=== PATIENT | female | born 1930 | race Caucasian/White ===

== ENCOUNTER 2016-05-25 09:57 | Outpatient (CLI) | payer MEDICARE, OTHER | END 2016-05-25 09:58 | disposition home or self-care (01) | DX: E87.6 Hypokalemia (principal); I10 Essential (primary) hypertension; R00.2 Palpitations; E78.5 Hyperlipidemia, unspecified ==

== ENCOUNTER 2017-05-18 08:00 | Outpatient (CLI) | payer MEDICARE, OTHER ==
[2017-05-18 13:01] LABS: BASOPHILS % (AUTO) 0.5 %; EOSINOPHILS % (AUTO) 0.8 %; HGB - HEMOGLOBIN 13.3 g/dL (12.0-16.0); LYMPHOCYTES # (AUTO) 1.5 10^3/uL (1.5-3.5); MEAN CORPUSCULAR HEMOGLOBIN 32.1 pg (27.0-31.0); MEAN CORPUSCULAR VOLUME 94.5 fL (81.0-99.0); MONOCYTES # (AUTO) 0.3 10^3/uL (0.0-1.0); NEUTROPHILS # (AUTO) 1.9 10^3/uL (1.5-6.6); NEUTROPHILS % (AUTO) 49.7 %; PLT - PLATELET COUNT 174 10^3/uL (130-450); RED BLOOD COUNT 4.14 10^6/uL (4.20-5.40); RED CELL DISTRIBUTION WIDTH 13.4 % (12.0-15.0); WHITE BLOOD COUNT 3.7 x10^3/uL (4.8-10.8)
[2017-05-18 13:12] LABS: ALBUMIN 4.2 g/dL (3.2-5.5); ALBUMIN/GLOBULIN RATIO 1.5 (1.0-2.2); ALKALINE PHOSPHATASE 54 IU/L (42-121); ALT ALANINE AMINOTRANSFERASE 16 IU/L (10-60); AST ASPARTATE AMINOTRANSFERASE 25 IU/L (10-42); BILIRUBIN,TOTAL 0.5 mg/dL (0.2-1.0); BUN - BLOOD UREA NITROGEN 20 mg/dL (6-20); CALCIUM 8.9 mg/dL (8.5-10.3); CARBON DIOXIDE - CO2 30 mmol/L (21-32); CHLORIDE 101 mmol/L (101-111); CHOLESTEROL 245 mg/dL; CREATININE 0.6 mg/dL (0.4-1.0); GFR - MDRD 95 (>89); GLUCOSE 98 mg/dL (70-100); HDL CHOLESTEROL 61 mg/dL; LDL CHOLESTEROL,CALCULATED 160 mg/dL; LDL/HDL RATIO 2.6 (<4.4); SODIUM 139 mmol/L (135-145); VLDL CHOLESTEROL 24 mg/dL
== END 2017-05-18 08:01 | disposition home or self-care (01) ==
LOC: LAB.WCP 08:00
PROVIDERS: ATTEND Family Medicine
DX: E87.6 Hypokalemia (principal); I10 Essential (primary) hypertension
CPT/HCPCS: 36415; 80053; 80061; 83721; 84443; 85025

== ENCOUNTER 2017-05-29 12:35 | Outpatient (CLI) | payer MEDICARE, OTHER ==
--- NOTE | 2017-05-30 10:51 | Mammography Report ---
DIGITAL SCREENING MAMMOGRAPHY: 05/29/2017 HISTORY: Prior right benign breast biopsy. COMPARISON: 05/06/2009. TECHNIQUE: Bilateral digital CC and MLO projections. FINDINGS: There are scattered fibroglandular densities. Stable postsurgical changes 12 o'clock position right breast. A few scattered benign appearing calcifications are present. There is no dominant mass, new architectural distortion, clustered suspicious microcalcifications, skin thickening, or interval change. IMPRESSION: NEGATIVE BI-RADS CATEGORY 1. SUGGEST RETURN TO ROUTINE SCREENING IN 12 MONTHS. STANDARD QUALIFYING STATEMENTS: 1. This examination was reviewed with the aid of Computer-Aided Detection (CAD) . 2. A negative or benign imaging report should not delay biopsy if clinically suspicious findings are present. Consider surgical consultation if warranted. More than 5 % of cancers are not identified by imaging. 3. Dense breasts may obscure an underlying neoplasm. TD: 05/30/2017 10:50 MTDD
== END 2017-05-29 12:36 | disposition home or self-care (01) ==
LOC: DI 12:35
PROVIDERS: ATTEND Family Medicine
DX: Z12.31 Encounter for screening mammogram for malignant neoplasm of breast (principal)
CPT/HCPCS: 77067

== ENCOUNTER 2017-09-27 08:00 | Outpatient (CLI) | payer MEDICARE, OTHER ==
[2017-09-27 12:30] LABS: BASOPHILS % (AUTO) 0.4 %; EOSINOPHILS % (AUTO) 1.1 %; HGB - HEMOGLOBIN 13.4 g/dL (12.0-16.0); LYMPHOCYTES # (AUTO) 1.3 10^3/uL (1.5-3.5); LYMPHOCYTES % (AUTO) 31.5 %; MEAN CORPUSCULAR HEMOGLOBIN 32.4 pg (27.0-31.0); MEAN CORPUSCULAR HGB CONC 34.1 g/dL (32.0-36.0); MEAN CORPUSCULAR VOLUME 94.9 fL (81.0-99.0); MEAN PLATELET VOLUME 9.8 fL (7.9-10.8); MONOCYTES # (AUTO) 0.3 10^3/uL (0.0-1.0); MONOCYTES % (AUTO) 7.8 %; NEUTROPHILS # (AUTO) 2.5 10^3/uL (1.5-6.6); NEUTROPHILS % (AUTO) 59.2 %; PLT - PLATELET COUNT 175 10^3/uL (130-450); RED BLOOD COUNT 4.15 10^6/uL (4.20-5.40); RED CELL DISTRIBUTION WIDTH 13.3 % (12.0-15.0); WHITE BLOOD COUNT 4.3 x10^3/uL (4.8-10.8)
[2017-09-27 13:21] LABS: ALBUMIN/GLOBULIN RATIO 1.3 (1.0-2.2); BILIRUBIN,TOTAL 0.9 mg/dL (0.2-1.0); CALCIUM 9.1 mg/dL (8.5-10.3); CREATININE 0.7 mg/dL (0.4-1.0); TOTAL PROTEIN 7.2 g/dL (6.7-8.2)
== END 2017-09-27 08:01 ==
LOC: LAB.WCP 08:00
PROVIDERS: ATTEND Family Medicine
DX: R00.2 Palpitations (principal)
CPT/HCPCS: 36415; 80053; 84443; 85025

== ENCOUNTER 2017-10-09 09:19 | Outpatient (CLI) | payer MEDICARE, OTHER ==
[2017-10-09 12:47] LABS: BASOPHILS % (AUTO) 0.6 %; HGB - HEMOGLOBIN 13.3 g/dL (12.0-16.0); LYMPHOCYTES # (AUTO) 1.4 10^3/uL (1.5-3.5); LYMPHOCYTES % (AUTO) 37.3 %; MEAN CORPUSCULAR HEMOGLOBIN 32.2 pg (27.0-31.0); MEAN CORPUSCULAR HGB CONC 34.2 g/dL (32.0-36.0); MEAN CORPUSCULAR VOLUME 94.1 fL (81.0-99.0); MEAN PLATELET VOLUME 10.4 fL (7.9-10.8); MONOCYTES # (AUTO) 0.3 10^3/uL (0.0-1.0); MONOCYTES % (AUTO) 8.1 %; PLT - PLATELET COUNT 164 10^3/uL (130-450); RED BLOOD COUNT 4.12 10^6/uL (4.20-5.40); RED CELL DISTRIBUTION WIDTH 12.9 % (12.0-15.0); WHITE BLOOD COUNT 3.7 x10^3/uL (4.8-10.8)
[2017-10-09 13:29] LABS: ALBUMIN 3.9 g/dL (3.2-5.5); ALBUMIN/GLOBULIN RATIO 1.2 (1.0-2.2); BILIRUBIN,TOTAL 0.8 mg/dL (0.2-1.0); CALCIUM 9.4 mg/dL (8.5-10.3); CREATININE 0.6 mg/dL (0.4-1.0); TOTAL PROTEIN 7.2 g/dL (6.7-8.2)
== END 2017-10-09 09:20 ==
LOC: LAB.WCP 09:19
PROVIDERS: ATTEND Internal Medicine Hematology & Oncology
DX: Z08 Encounter for follow-up examination after completed treatment for malignant neoplasm (principal)
CPT/HCPCS: 36415; 80053; 82378; 85025

== ENCOUNTER 2018-09-12 14:54 | Outpatient (CLI) | payer MEDICARE, OTHER ==
[2018-09-12 19:10] LABS: BASOPHILS % (AUTO) 0.4 %; EOSINOPHILS # (AUTO) 0.1 10^3/uL (0.0-0.7); HGB - HEMOGLOBIN 12.9 g/dL (12.0-16.0); LYMPHOCYTES # (AUTO) 1.6 10^3/uL (1.5-3.5); LYMPHOCYTES % (AUTO) 33.6 %; MEAN CORPUSCULAR HEMOGLOBIN 31.7 pg (27.0-31.0); MEAN CORPUSCULAR HGB CONC 32.3 g/dL (32.0-36.0); MEAN PLATELET VOLUME 12.2 fL (7.9-10.8); MONOCYTES # (AUTO) 0.4 10^3/uL (0.0-1.0); MONOCYTES % (AUTO) 8.9 %; NEUTROPHILS # (AUTO) 2.7 10^3/uL (1.5-6.6); NEUTROPHILS % (AUTO) 55.9 %; PLT - PLATELET COUNT 192 10^3/uL (130-450); RED BLOOD COUNT 4.07 10^6/uL (4.20-5.40); RED CELL DISTRIBUTION WIDTH 12.5 % (12.0-15.0); WHITE BLOOD COUNT 4.9 x10^3/uL (4.8-10.8)
[2018-09-12 19:21] LABS: ALBUMIN 3.8 g/dL (3.2-5.5); ALBUMIN/GLOBULIN RATIO 1.2 (1.0-2.2); ALKALINE PHOSPHATASE 71 IU/L (42-121); ALT ALANINE AMINOTRANSFERASE 18 IU/L (10-60); AST ASPARTATE AMINOTRANSFERASE 21 IU/L (10-42); BILIRUBIN,TOTAL < 0.2 mg/dL (0.2-1.0); BUN - BLOOD UREA NITROGEN 19 mg/dL (6-20); CALCIUM 9.2 mg/dL (8.5-10.3); CARBON DIOXIDE - CO2 30 mmol/L (21-32); CHLORIDE 101 mmol/L (101-111); CREATININE 0.7 mg/dL (0.4-1.0); GFR - MDRD 79 (>89); GLUCOSE 105 mg/dL (70-100); MAGNESIUM 2.3 mg/dL (1.7-2.8); SODIUM 141 mmol/L (135-145); TOTAL PROTEIN 7.1 g/dL (6.7-8.2)
== END 2018-09-12 23:59 | disposition home or self-care (01) ==
LOC: LAB.WCP 14:54
PROVIDERS: ATTEND Family Medicine
DX: I10 Essential (primary) hypertension (principal); R00.2 Palpitations
CPT/HCPCS: 36415; 80053; 83735; 84443; 85025

== ENCOUNTER 2018-09-25 07:48 | Outpatient (CLI) | payer MEDICARE, OTHER | END 2018-09-25 07:49 | disposition home or self-care (01) | LOC: DI 07:48 | PROVIDERS: ATTEND Family Medicine | DX: R42 Dizziness and giddiness (principal); R00.2 Palpitations; I27.20 Pulmonary hypertension, unspecified; I34.0 Nonrheumatic mitral (valve) insufficiency | CPT/HCPCS: 93306 ==

== ENCOUNTER 2018-10-04 13:59 | Outpatient (CLI) | payer MEDICARE, OTHER ==
--- NOTE | 2018-10-05 14:02 | XRAY Report ---
Reason: HIP PAIN Procedure Date: 10/04/2018 Accession Number: [id number] / [id number] Procedure: WCP - Hip BILAT CPT Code: FULL RESULT: EXAM: BILATERAL HIP RADIOGRAPHY EXAM DATE: 10/04/2018 01:59 PM. CLINICAL HISTORY: HIP PAIN. By all hip and groin pain for 2 weeks. COMPARISON: None. TECHNIQUE: 2 views each. FINDINGS: Bones: Normal. No fractures or bone lesion. Right Hip: Mild right hip joint space narrowing. Left Hip: Mild left hip joint space narrowing. Soft Tissues: Normal. No soft tissue swelling. IMPRESSION: 1. Mild bilateral hip degenerative changes. 2. No evidence of fracture or dislocation. RADIA
== END 2018-10-04 23:59 | disposition home or self-care (01) ==
LOC: DI.WCP 13:59
PROVIDERS: ATTEND Family Medicine
DX: M16.0 Bilateral primary osteoarthritis of hip (principal)
CPT/HCPCS: 73521

== ENCOUNTER 2018-10-15 08:00 | Outpatient (CLI) | payer MEDICARE, OTHER ==
[2018-10-15 12:49] LABS: CALCIUM 9.5 mg/dL (8.5-10.3); CREATININE 0.8 mg/dL (0.4-1.0)
== END 2018-10-15 23:59 | disposition home or self-care (01) ==
LOC: LAB.WCP 08:00
PROVIDERS: ATTEND Family Medicine
DX: E87.6 Hypokalemia (principal)
CPT/HCPCS: 36415; 80048

== ENCOUNTER 2018-12-14 15:03 | Emergency (ER) | payer MEDICARE, OTHER ==
[2018-12-14] MEDS ORDERED: DEXAMETHASONE 10 MG/ML VIAL PO STA (15:28)
[2018-12-14] MEDS ORDERED: CHERRY SYRUP 10 ML UDC PO ONE (15:28)
[2018-12-14 15:51] VITALS: BP 157/74
--- NOTE | 2018-12-14 15:51 | ED Physician Documentation ---
History of Present Illness - Stated complaint Stated Complaint: RT WRIST INCISION OPENING - Chief complaint Chief Complaint: Laceration - History obtained from History obtained from: Patient, Family - History of Present Illness Timing: Today - Additonal information Additional information: 88-year-old female begin to have some symptoms of carpal tunnel in August of this year and she has had a carpal tunnel release done on the right wrist 16 days ago and she is coming to the emergency department today for a superficial dehiscence of her wound. She had the sutures removed yesterday today she notices the wound is open at the top and there is no bleeding and the patient has improved functionality of the hand. She had previously had injection into the carpal tunnel with only temporary relief and she indicates that after surgery she had immediate relief and she is anxious to get the surgery done on the left wrist. She has an orthopedic surgeon she has seen on at [facility]. 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: Other - Present Medications Home Medications: Ambulatory Orders Medication Instructions Recorded Confirmed Hydrochlorothiazide 25 mg PO DAILY 07/01/14 07/01/14 Losartan [Cozaar] 1 units ORAL DAILY 07/01/14 07/01/14 Potassium Gluconate [Potassium] 99 mg PO DAILY 07/01/14 07/01/14 - Allergies Allergies/Adverse Reactions: Allergies Allergy/AdvReac Type Severity Reaction Status Date / Time No Known Drug Allergies Allergy Verified 12/14/18 15:10 PD ED PE NORMAL - Vitals Vital signs reviewed: Yes (hypertensive) - General General: No acute distress, Well developed/nourished - HEENT HEENT: Atraumatic, PERRL - Respiratory Respiratory: No respiratory distress - Derm Derm: Normal color, Warm and dry - Extremities Extremities: Other (With palmar surface of the proximal hand there is a 3 cm surgical incision and this appears to have healed from the inside and the superficial layer of the skin is . There is no bleeding there is no significant inflammation to the area. The wound does not dehisce further with traction on the wound. Distal neurovascular is intact with the exception of some numbness to the right thumb.) - Neuro Neuro: Alert and oriented X 3, operations executive 2-12 intact, No motor deficit, No sensory deficit, Normal speech Eye Opening: Spontaneous Motor: Obeys Commands Verbal: Oriented GCS Score: 15 - Psych Psych: Normal mood, Normal affect Results - Vitals Vitals: Vital Signs - 24 hr 12/14/18 15:10 Temperature 36.6 C Heart Rate 65 Respiratory 16 Rate Blood Pressure 154/79 H O2 Saturation 94 Oxygen O2 Source Room air PD MEDICAL DECISION MAKING - ED course Complexity details: reviewed results, re-evaluated patient, considered differential, d/w patient, d/w family ED course: 88-year-old female with a carpal tunnel release done 16 days ago has superficial dehiscence of the wound and it appears to be healing well from the inside. She is reassured and she does have some puffiness to the hand into the left wrist and we have administered a dose of dexamethasone for symptomatic treatment. Departure - Departure Disposition: 01 Home, Self Care Clinical Impression: Superficial dehiscence of operation wound Qualifiers: Encounter type: initial encounter Qualified Code(s): T81.31XA - Disruption of external operation (surgical) wound, not elsewhere classified, initial encounter Condition: Stable Instructions: ED Wound Check Post Op No Infec Follow-Up: Alexandra Bonilla DO [Primary Care Provider] -
== END 2018-12-14 16:05 | disposition home or self-care (01) ==
LOC: ED 15:03
DX: T81.31XA Disruption of external operation (surgical) wound, not elsewhere classified, initial encounter (principal); Y83.8 Other surgical procedures as the cause of abnormal reaction of the patient, or of later complication, without mention of misadventure at the time of the procedure; I10 Essential (primary) hypertension
CPT/HCPCS: 99282; A9270

== ENCOUNTER 2019-01-03 10:30 | Emergency (ER) | payer MEDICARE, OTHER ==
[2019-01-03 10:54] LABS: BASOPHILS % (AUTO) 0.4 %; EOSINOPHILS % (AUTO) 0.6 %; HGB - HEMOGLOBIN 13.4 g/dL (12.0-16.0); LYMPHOCYTES # (AUTO) 1.4 10^3/uL (1.5-3.5); LYMPHOCYTES % (AUTO) 28.5 %; MEAN CORPUSCULAR HEMOGLOBIN 31.6 pg (27.0-31.0); MEAN CORPUSCULAR HGB CONC 33.8 g/dL (32.0-36.0); MEAN CORPUSCULAR VOLUME 93.6 fL (81.0-99.0); MONOCYTES # (AUTO) 0.4 10^3/uL (0.0-1.0); MONOCYTES % (AUTO) 7.3 %; PLT - PLATELET COUNT 200 10^3/uL (130-450); RED BLOOD COUNT 4.24 10^6/uL (4.20-5.40); RED CELL DISTRIBUTION WIDTH 12.2 % (12.0-15.0); WHITE BLOOD COUNT 4.8 x10^3/uL (4.8-10.8)
[2019-01-03 11:07] LABS: ALBUMIN 4.7 g/dL (3.2-5.5); ALBUMIN/GLOBULIN RATIO 1.4 (1.0-2.2); BILIRUBIN,TOTAL 0.7 mg/dL (0.2-1.0); CALCIUM 9.8 mg/dL (8.5-10.3); CREATININE 0.7 mg/dL (0.4-1.0)
--- NOTE | 2019-01-03 11:11 | ED Physician Documentation ---
History of Present Illness - Stated complaint Stated Complaint: HEART PALPITATIONS - Chief complaint Chief Complaint: Cardiac - History obtained from History obtained from: Patient, Family - History of Present Illness Timing: Chronic Pain level now: 0 - Additonal information Additional information: This is an 88-year-old woman who has had a long-standing history of palpitations over many years and now they seem to be happening more frequently and more intensely. The usually last for 2 to 3 minutes but this morning it seemed to go on for 10 to 15 minutes. She describes them as more as a "uneven beat". She gets that short of breath when they happen and feels little bit dizzy but she has not passed out. She gets a wave of fatigue and cold associated with it as well over the past 30 days however on November 28 she had a right carpal tunnel repair and then a left one done just this past Monday 2 days ago. She has had these palpitations for many years nothing is ever shown up and they worked them up she is even 1 monitor. Denies history of heart disease or A. fib. Has no history of thyroid disorder or diabetes. She has been experiencing some nausea and does not have much of an appetite but she has not been vomiting. She normally takes losartan hydrochlorothiazide and potassium but did not take them today. She admits to 3 to 4 cups of coffee a day. Denies use of any other stimulants. She has not recently been ill. Denies headache or dysuria. Denies history of DVT. She is complaining of some numbness along the lateral right lower leg that she believes is from being so sedentary since she had a carpal tunnel surgeries. She is normally very active she lives with her and daughter. Her is requires some care and with these of back to back surgery she really has not been able to do very much. Review of Systems Constitutional: denies: Fever Eyes: denies: Loss of vision Nose: denies: Rhinorrhea / runny nose, Congestion Throat: denies: Sore throat Cardiac: reports: Palpitations. denies: Chest pain / pressure, Pedal edema Respiratory: reports: Dyspnea. denies: Cough GI: denies: Nausea, Vomiting : denies: Dysuria, Frequency Musculoskeletal: reports: Extremity swelling (The left hand is swollen after the carpal tunnel surgery) Neurologic: reports: Generalized weakness, Numbness (Along the lateral right lower leg just since she is been sedentary.). 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: Other - Present Medications Home Medications: Ambulatory Orders Medication Instructions Recorded Confirmed Hydrochlorothiazide 25 mg PO DAILY 07/01/14 07/01/14 Losartan [Cozaar] 1 units ORAL DAILY 07/01/14 07/01/14 Potassium Gluconate [Potassium] 99 mg PO DAILY 07/01/14 07/01/14 - Allergies Allergies/Adverse Reactions: Allergies Allergy/AdvReac Type Severity Reaction Status Date / Time No Known Drug Allergies Allergy Verified 12/14/18 15:10 - Social History Does the pt smoke?: No Smoking Status: Never smoker Does the pt drink ETOH?: No Does the pt have substance abuse?: No - Immunizations Immunizations are current?: Yes PD ED PE NORMAL - Vitals Vital signs reviewed: Yes - General General: Alert and oriented X 3, No acute distress, Well developed/nourished - HEENT HEENT: Atraumatic, PERRL, EOMI, Moist mucous membranes, Pharynx benign - Neck Neck: Supple, no meningeal sign, No adenopathy, Thyroid normal, No JVD, No bruit - Cardiac Cardiac: RRR, No murmur, No rub, Strong equal pulses - Respiratory Respiratory: No respiratory distress, Clear bilaterally - Abdomen Abdomen: Normal bowel sounds, Soft, Non tender - Derm Derm: Normal color, Warm and dry, No rash - Extremities Extremities: No deformity, Other (The left wrist is wrapped in an Onesimo wrap. She has edema to the hand and fingers. There is a well-healed carpal tunnel scar in her right palm. Her knuckles are enlarged on the right hand but no edema.) - Neuro Neuro: Alert and oriented X 3, capacitor tester 2-12 intact, No motor deficit, No sensory deficit, Normal speech - Psych Psych: Normal mood, Normal affect Results - Vitals Vitals: Vital Signs - 24 hr 01/03/19 01/03/19 01/03/19 10:31 11:12 12:44 Temperature 36.6 C Heart Rate 76 68 68 Respiratory 18 18 18 Rate Blood Pressure 216/81 H 197/97 H 152/60 H O2 Saturation 96 99 98 01/03/19 14:20 Temperature Heart Rate 78 Respiratory 18 Rate Blood Pressure 151/72 H O2 Saturation 95 Oxygen O2 Source Room air - EKG (time done) 1041 Rate: Rate (enter#) (66) Rhythm: NSR Intervals: No: Wide QRS Ischemia: ST depression (V5 and V6) Compare to prior EKG: Old EKG unavailable - Labs Labs: Laboratory Tests 01/03/19 01/03/19 01/03/19 10:48 10:48 10:48 WBC 4.8 RBC 4.24 Hgb 13.4 Hct 39.7 MCV 93.6 MCH 31.6 H MCHC 33.8 RDW 12.2 Plt Count 200 MPV 11.0 H Neut # (Auto) 3.0 Lymph # (Auto) 1.4 L Rabun # (Auto) 0.4 Eos # (Auto) 0.0 Baso # (Auto) 0.0 Absolute Nucleated RBC 0.00 Nucleated RBC % 0.0 Sodium 141 Potassium 3.4 L Chloride 101 Carbon Dioxide 29 Anion Gap 11.0 BUN 17 Creatinine 0.7 Estimated GFR (MDRD) 79 L Glucose 103 H Calcium 9.8 Total Bilirubin 0.7 AST 18 ALT 11 Alkaline Phosphatase 70 Troponin I High Sens 4.8 Total Protein 8.0 Albumin 4.7 Globulin 3.3 Albumin/Globulin Ratio 1.4 Lipase 29 - Rads (name of study) CXR Radiology: See rad report (NEg acute) PD MEDICAL DECISION MAKING - ED course Complexity details: reviewed results, re-evaluated patient, d/w patient, d/w family ED course: Patient was monitored here in the emergency department the daughter made note of a time that she saw something on the heart monitor and when we reviewed there were 2 PACs that were evident during that timeframe. Otherwise no arrhythmia was noted. Her potassium was very minimally low at 3.4 so she was given 20 mg once of potassium orally. Hemoglobin is normal. Troponin was negative. Chest x-ray was clear and her EKG does not show acute changes. She has an appointment scheduled with her primary care provider tomorrow. Of encouraged her to keep that appointment to discuss whether or not she should wear another Holter monitor. We discussed Turmeric as a natural anti-inflammatory. Departure - Departure Disposition: Home, Self Care Clinical Impression: Palpitations, Hypokalemia Condition: Good Instructions: ED Palpitations Follow-Up: Alexandra Bonilla DO [Primary Care Provider] - Comments: Home and rest. Do not take any additional potassium today. Keep the dandy ointment scheduled tomorrow and discuss whether or not wearing another Holter monitor would be beneficial. Discharge Date/Time: 01/03/19 14:22
--- NOTE | 2019-01-03 12:41 | XRAY Report ---
Reason: chest pain Procedure Date: 01/03/2019 Accession Number: [id number] / [id number] Procedure: XR - Chest 1 View X-Ray CPT Code: 76988 Final Report FULL RESULT: EXAM: CHEST RADIOGRAPHY EXAM DATE: 01/03/2019 11:47 AM. CLINICAL HISTORY: Chest pain. COMPARISON: CHEST 2 VIEW PA/LAT 07/03/2014 6:27 PM. TECHNIQUE: 1 view. FINDINGS: Lungs/Pleura: No focal opacities evident. No pleural effusion. No pneumothorax. Mediastinum: Atherosclerotic aortic arch calcification. Other: None. IMPRESSION: No consolidation evident. RADIA
[2019-01-03] MEDS ORDERED: POTASSIUM CHLORIDE 20 MEQ TABLET PO ONE (13:08)
[2019-01-03 14:21] VITALS: BP 151/72
== END 2019-01-03 14:22 | disposition home or self-care (01) ==
LOC: ED 10:30
DX: R00.2 Palpitations (principal); E87.6 Hypokalemia; I10 Essential (primary) hypertension
CPT/HCPCS: 36415; 71045; 80053; 83690; 84484; 85025; 93005; 99281; 99284; A9270

== ENCOUNTER 2019-03-14 08:00 | Outpatient (CLI) | payer MEDICARE, OTHER ==
[2019-03-14 12:43] LABS: ALBUMIN 4.2 g/dL (3.2-5.5); ALBUMIN/GLOBULIN RATIO 1.2 (1.0-2.2); BILIRUBIN,TOTAL 0.8 mg/dL (0.2-1.0); CALCIUM 9.2 mg/dL (8.5-10.3); CREATININE 0.8 mg/dL (0.4-1.0); MAGNESIUM 2.4 mg/dL (1.7-2.8); TOTAL PROTEIN 7.6 g/dL (6.7-8.2)
[2019-03-14 12:54] LABS: BASOPHILS % (AUTO) 0.3 %; EOSINOPHILS # (AUTO) 0.1 10^3/uL (0.0-0.7); EOSINOPHILS % (AUTO) 0.9 %; HGB - HEMOGLOBIN 13.2 g/dL (12.0-16.0); LYMPHOCYTES # (AUTO) 1.4 10^3/uL (1.5-3.5); LYMPHOCYTES % (AUTO) 24.6 %; MEAN CORPUSCULAR HEMOGLOBIN 30.6 pg (27.0-31.0); MEAN CORPUSCULAR HGB CONC 32.4 g/dL (32.0-36.0); MEAN CORPUSCULAR VOLUME 94.4 fL (81.0-99.0); MEAN PLATELET VOLUME 11.9 fL (7.9-10.8); MONOCYTES # (AUTO) 0.4 10^3/uL (0.0-1.0); MONOCYTES % (AUTO) 7.6 %; NEUTROPHILS # (AUTO) 3.8 10^3/uL (1.5-6.6); NEUTROPHILS % (AUTO) 66.4 %; PLT - PLATELET COUNT 187 10^3/uL (130-450); RED BLOOD COUNT 4.32 10^6/uL (4.20-5.40); RED CELL DISTRIBUTION WIDTH 12.7 % (12.0-15.0); WHITE BLOOD COUNT 5.8 x10^3/uL (4.8-10.8)
== END 2019-03-14 23:59 | disposition home or self-care (01) ==
LOC: LAB.WCP 08:00
PROVIDERS: ATTEND Family Medicine
DX: R00.2 Palpitations (principal)
CPT/HCPCS: 36415; 80053; 83735; 84443; 85025

== ENCOUNTER 2020-04-09 13:20 | Emergency (ER) | payer MEDICARE, OTHER ==
[2020-04-09 14:29] LABS: BASOPHILS % (AUTO) 0.5 %; EOSINOPHILS % (AUTO) 0.7 %; HGB - HEMOGLOBIN 13.5 g/dL (12.0-16.0); LYMPHOCYTES # (AUTO) 1.2 10^3/uL (1.5-3.5); LYMPHOCYTES % (AUTO) 28.2 %; MEAN CORPUSCULAR HEMOGLOBIN 32.3 pg (27.0-31.0); MEAN CORPUSCULAR HGB CONC 33.7 g/dL (32.0-36.0); MEAN CORPUSCULAR VOLUME 95.9 fL (81.0-99.0); MEAN PLATELET VOLUME 11.7 fL (7.9-10.8); MONOCYTES # (AUTO) 0.4 10^3/uL (0.0-1.0); MONOCYTES % (AUTO) 10.3 %; NEUTROPHILS # (AUTO) 2.5 10^3/uL (1.5-6.6); NEUTROPHILS % (AUTO) 60.1 %; PLT - PLATELET COUNT 163 10^3/uL (130-450); RED BLOOD COUNT 4.18 10^6/uL (4.20-5.40); RED CELL DISTRIBUTION WIDTH 12.4 % (12.0-15.0); WHITE BLOOD COUNT 4.1 x10^3/uL (4.8-10.8)
--- NOTE | 2020-04-09 14:31 | XRAY Report ---
PROCEDURE: Chest 1 View X-Ray INDICATIONS: Chest Pain TECHNIQUE: One view of the chest was acquired. COMPARISON: 01/04/2020 chest x-ray FINDINGS: Surgical changes and devices: None. Lungs and pleura: No pleural effusions or pneumothorax. Lungs are clear. Mediastinum: Mediastinal contours appear normal. Heart size is normal. Bones and chest wall: No suspicious bony lesions. Overlying soft tissues appear unremarkable. IMPRESSION: No acute process. Reviewed by: Wendy Freeman MD on 04/09/2020 2:29 PM PST Approved by: Wendy Freeman MD on 04/09/2020 2:29 PM [facility] Station ID: [id number]
[2020-04-09 14:46] LABS: ALBUMIN 4.2 g/dL (3.2-5.5); ALBUMIN/GLOBULIN RATIO 1.3 (1.0-2.2); BILIRUBIN,TOTAL 0.6 mg/dL (0.2-1.0); CALCIUM 9.4 mg/dL (8.5-10.3); CREATININE 0.7 mg/dL (0.4-1.0); TOTAL PROTEIN 7.4 g/dL (6.7-8.2)
--- NOTE | 2020-04-09 16:10 | ED Physician Documentation ---
History of Present Illness - Stated complaint Stated Complaint: DIZZINESS/TINGLING - Chief complaint Chief Complaint: General - History obtained from History obtained from: Patient - Additonal information Additional information: 89-year-old woman with history of high blood pressure presents with palpitations for the past year worsening over the past 2 to 3 days associated with lightheadedness, tired feeling and tingling sensation. Patient states that she has been getting dizzy while doing yard work and has been taking it easy over the past year but this morning was watching political debate on television and experienced a squeezing in her heart that prompted her to call her daughter. Her daughter then urged her to come to the emergency room. The squeezing sensation in the heart was mild, sudden onset, nonradiating, resolved on its own after a few minutes, a/w dizziness. Denies fevers chills, nausea, back pain, shortness of breath, cough or leg swelling. 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: Other - Present Medications Home Medications: Ambulatory Orders Medication Instructions Recorded Confirmed Hydrochlorothiazide 25 mg PO DAILY 07/01/14 07/01/14 Losartan [Cozaar] 1 units ORAL DAILY 07/01/14 07/01/14 Potassium Gluconate [Potassium] 99 mg PO DAILY 07/01/14 07/01/14 - Allergies Allergies/Adverse Reactions: Allergies Allergy/AdvReac Type Severity Reaction Status Date / Time nuts Allergy Unknown Uncoded 01/04/19 07:43 - Social History Does the pt smoke?: No Smoking Status: Never smoker Does the pt drink ETOH?: No Does the pt have substance abuse?: No - Immunizations Immunizations are current?: Yes PD ED PE NORMAL - Vitals Vital signs reviewed: Yes - General General: Alert and oriented X 3, No acute distress, Well developed/nourished - HEENT HEENT: Atraumatic - Neck Neck: Supple, no meningeal sign - Cardiac Cardiac: RRR - Respiratory Respiratory: No respiratory distress, Clear bilaterally - Abdomen Abdomen: Non tender, Non distended - Female Female : Deferred - Rectal Rectal: Deferred - Back Back: No CVA TTP - Derm Derm: Normal color - Extremities Extremities: No deformity - Neuro Neuro: Alert and oriented X 3 - Psych Psych: Normal mood, Normal affect Results - Vitals Vitals: Vital Signs - 24 hr 04/09/20 04/09/20 04/09/20 13:31 14:30 16:00 Temperature 36.4 C L 36.4 C L Heart Rate 70 62 60 Respiratory 16 12 18 Rate Blood Pressure 162/70 H 144/61 H 163/67 H O2 Saturation 97 97 99 Oxygen O2 Source Room air - Labs Labs: Laboratory Tests 04/09/20 04/09/20 04/09/20 14:05 14:05 14:05 WBC 4.1 L RBC 4.18 L Hgb 13.5 Hct 40.1 MCV 95.9 MCH 32.3 H MCHC 33.7 RDW 12.4 Plt Count 163 MPV 11.7 H Neut # (Auto) 2.5 Lymph # (Auto) 1.2 L Gonzales # (Auto) 0.4 Eos # (Auto) 0.0 Baso # (Auto) 0.0 Absolute Nucleated RBC 0.00 Nucleated RBC % 0.0 Sodium 137 Potassium 3.7 Chloride 99 L Carbon Dioxide 29 Anion Gap 9.0 BUN 21 H Creatinine 0.7 Estimated GFR (MDRD) 79 L Glucose 92 Calcium 9.4 Total Bilirubin 0.6 AST 26 ALT 20 Alkaline Phosphatase 62 Troponin I High Sens 4.2 Total Protein 7.4 Albumin 4.2 Globulin 3.2 Albumin/Globulin Ratio 1.3 Lipase 31 04/09/20 15:28 WBC RBC Hgb Hct MCV MCH MCHC RDW Plt Count MPV Neut # (Auto) Lymph # (Auto) Gonzales # (Auto) Eos # (Auto) Baso # (Auto) Absolute Nucleated RBC Nucleated RBC % Sodium Potassium Chloride Carbon Dioxide Anion Gap BUN Creatinine Estimated GFR (MDRD) Glucose Calcium Total Bilirubin AST ALT Alkaline Phosphatase Troponin I High Sens 4.5 Total Protein Albumin Globulin Albumin/Globulin Ratio Lipase PD MEDICAL DECISION MAKING - ED course ED course: Labwork, cxr nonfocal. Rpt ekg and trop without any changes. No concerning findings on cardiac monitoring aside from occasional PVCs. Offered overnight observation for chest pain and presyncopal episode but patient declined, stating she is feeling better and would like to follow up outpatient with her PCP Dr. Bonilla for possible holter placement. strict return precautions given. Departure - Departure Disposition: 01 Home, Self Care Clinical Impression: Chest heaviness, Palpitations, Lightheadedness, Weakness Condition: Good Instructions: Heart Palpitations Follow-Up: Alexandra Bonilla DO [Primary Care Provider] - Comments: You were seen in the emergency department for chest heaviness, palpitations, and dizziness. Your lab work and EKG and chest x-ray had no concerning findings. You did have some PVCs on the bus monitor during your stay. Please follow up with Dr. Bonilla this week. Return to the ED for any new or worsening symptoms or other concerns.
[2020-04-09 16:58] VITALS: BP 170/76
== END 2020-04-09 16:50 | disposition home or self-care (01) ==
LOC: ED 13:20
DX: R07.89 Other chest pain (principal); R00.2 Palpitations; R42 Dizziness and giddiness; R53.1 Weakness; I10 Essential (primary) hypertension
CPT/HCPCS: 36415; 80053; 83690; 84484; 85025; 93005; 99284